=== PATIENT | female | born 1990 | race Caucasian/White ===

== ENCOUNTER 2021-01-29 00:51 | Day surgery (SDC) | payer OTHER, SELFPAY ==
[2021-01-22 11:25] VITALS: BMI 32.9
[2021-01-29 09:28] VITALS: BP 108/74; PULSE 74; RESP 18; TEMP 36.4; O2SAT 99; BMI 32.9
[2021-01-29] MEDS: LACTATED RINGERS 1,000 ML 150 ML IV CONT (09:42)
--- NOTE | 2021-01-29 10:22 | PM.HPGS ---
History of Present Illness History of Present Illness Consent: Risks, benefits, and alternatives have been discussed and questions answered. Patient agrees to proceed with procedure. Chief complaint: constipation/Abdom.pain, Nausea/vomiting Narrative: Jacquie Ndiaye is a 30 year old female with persistent right upper quadrant pain. This began about 4 weeks ago and is now constant. Along with this she has had bouts of nausea and vomiting. It was so bad of 1 point recently that she was hospitalized for that. Multiple studies have been negative including ultrasound, CT scan, and HIDA scan Review of Systems Review of Systems: All systems reviewed & are unremarkable except as noted in HPI and below PMFSH Past Medical History Medical History Constipation Endometriosis Nausea and vomiting RUQ pain Family History Family History Father Hypertension Mother Hypertension Sibling Family history of gynecological problem Social History Social History Smoking status: Never smoker Alcohol intake: current Drinks per week: 1 Living arrangements: with family Spiritual care concerns: No Meds Home Medications and Allergies Home Medications Medication Instructions Recorded Confirmed Type fluvoxamine 50 mg tablet 50 mg PO DAILY 01/17/21 01/22/21 History pantoprazole 40 mg tablet,delayed 40 mg PO QAM 01/17/21 01/22/21 History release albuterol sulfate 1 inh INHALATION DAILY PRN 01/22/21 01/22/21 History idqpoxkg-axmc-MS-calcium-mins 1 tablet PO DAILY 01/22/21 01/22/21 History [Women's One Daily] Allergies Allergy/AdvReac Type Severity Reaction Status Date / Time amoxicillin Allergy Unknown hives Verified 01/29/21 09:22 Sulfa (Sulfonamide Allergy Unknown rash Verified 01/29/21 09:22 Antibiotics) POTASSIUM CLAVULANATE Allergy Mild rash Uncoded 01/22/21 11:22 Vital Signs Vital Signs - 24 hr 01/29/21 09:28 Temperature 36.4 C L Pulse Rate 74 Respiratory Rate 18 Blood Pressure 108/74 Pulse Oximetry 99 Exam Const: General: alert Orientation/consciousness: patient oriented x3 Resp: Auscultation: clear to auscultation bilaterally Cardio: Rhythm: regular rhythm GI: GI Palp: Yes Soft to palpation and No Tenderness to palpation present (GI) Neuro: General: patient oriented x3 Assessment and Plan Assessment and plan (1) RUQ pain: Code(s): R10.11 - Right upper quadrant pain Status: Acute Assessment and Plan: EGD with possible biopsy or dilatation or cautery. (2) Change in bowel habits: Code(s): R19.4 - Change in bowel habit Status: Acute Assessment and Plan: Colonoscopy with possible biopsy or polypectomy or cautery or injection of substances.
--- NOTE | 2021-01-29 10:46 | WPDANESEPPF ---
Anes - Initial Pre Proc Eval Procedure: Operation Date: 01/29/21 10:30 Proposed Procedures p Esophagogastroduodenoscopy & Colonoscopy - Steven Mujica MD Date/Time: 01/29/21 10:46 Surgeon: Steven Mujcia MD Pre Op Diagnosis: constipation/Abdom.pain, Nausea/vomiting Patient Data Age: 30 Gender: F Height: 1.63 m Weight: 87 kg Last Vital Signs Temp 97.5 F L 01/29/21 09:28 Pulse 74 01/29/21 09:28 Resp 18 01/29/21 09:28 BP 108/74 01/29/21 09:28 Pulse Ox 99 01/29/21 09:28 Allergies Allergy/AdvReac Type Severity Reaction Status Date / Time amoxicillin Allergy Unknown hives Verified 01/29/21 09:22 Sulfa (Sulfonamide Allergy Unknown rash Verified 01/29/21 09:22 Antibiotics) POTASSIUM CLAVULANATE Allergy Mild rash Uncoded 01/22/21 11:22 Home Medications Medication Instructions Recorded Confirmed Type fluvoxamine 50 mg tablet 50 mg PO DAILY 01/17/21 01/22/21 History pantoprazole 40 mg tablet,delayed 40 mg PO QAM 01/17/21 01/22/21 History release albuterol sulfate 1 inh INHALATION DAILY PRN 01/22/21 01/22/21 History fvkqvfbx-sgnz-ID-calcium-mins 1 tablet PO DAILY 01/22/21 01/22/21 History [Women's One Daily] Patient hx anesthesia problems: none Family hx anesthesia problems: none PMFSH Past Medical History Medical History Constipation Endometriosis Nausea and vomiting RUQ pain Family History Family History Father Hypertension Mother Hypertension Sibling Family history of gynecological problem Social History Social History Smoking status: Never smoker Alcohol intake: current Drinks per week: 1 Living arrangements: with family Spiritual care concerns: No Anes - Eval Final PreProcedure Day of Procedure 01/29/21 10:46 Patient weight: obese Heart: regular rate and rhythm Lungs: clear to auscultation Airway: Mallampati scale class II Neurological: alert and oriented Last oral intake: >/= 8 hours ASA classification: III Emergent: no Anesthetic plan: proceed Anesthesia type and monitoring: general GIVS and standard monitoring Informed Consent: The patient's anesthetic plan and its attendant risks and benefits were discussed with the patient/family/POA. Questions were solicited and answers provided to the satisfaction of the patient/family/POA.
[2021-01-29] MEDS: BENZOCAINE (*SP) 60 ML SPRAY CAN (HURRICAINE) 1 SPRAY MUCOUS MEM (11:07)
[2021-01-29 11:32] VITALS: BP 80/50; PULSE 82; RESP 28; O2SAT 100
[2021-01-29 11:42] VITALS: BP 90/48; PULSE 75; RESP 27; O2SAT 100
[2021-01-29 11:52] VITALS: BP 89/53; PULSE 69; RESP 23; O2SAT 100
== END 2021-01-29 12:00 | disposition home or self-care (01) ==
PROVIDERS: PCP Family Medicine; Visit Provider Internal Medicine Gastroenterology
PROC: 0DJ08ZZ Inspection of Upper Intestinal Tract, Via Natural or Artificial Opening Endoscopic (ICD-10-PCS; CPT 43235; principal; 2021-01-29 10:30)
DX: R19.4 Change in bowel habit (principal); K21.9 Gastro-esophageal reflux disease without esophagitis; R11.2 Nausea with vomiting, unspecified; R10.11 Right upper quadrant pain; E66.9 Obesity, unspecified; Z68.32 Body mass index [BMI] 32.0-32.9, adult
CPT/HCPCS: 45378; 43239; 87081; 88305; J2704; J7120

== ENCOUNTER 2023-08-30 18:20 | Emergency (ER) | payer OTHER, SELFPAY ==
--- NOTE | ~2023-08-30 | XR_ITS ---
EXAM: XR ankle RT min 3V DATE: 08/30/2023 19:21 HISTORY: fall, injury . COMPARISON: 11/27/2007. FINDINGS: Normal mineralization. No fracture or dislocation. No lytic or blastic lesion. Joint space s are maintained. No erosion or periosteal change. Soft tissues within normal limits. IMPRESSION: No acute osseous finding in the right ankle. Reviewed, dictated and finalized at location K. [employer]
--- NOTE | 2023-08-30 22:29 | ED.LOWEXIN ---
HPI - Extremity Injury (Lower) General Chief Complaint: Extremity Injury, Lower Stated Complaint: R ANKLE INJURY Time Seen by Provider: 08/30/23 21:48 History of Present Illness HPI Narrative: 33-year-old female presents to the emergency department for evaluation for right ankle pain after stepping into a hole running in the yard earlier today. Patient is reporting pain to her lateral malleolus he that is worse with walking and movement. Denies hitting her head or losing consciousness. No other injuries acquired. Denies tenderness remainder of her extremity. Denies concern for . Related Data Home Medications Medication Instructions Recorded Confirmed fluvoxamine 50 mg tablet 50 mg PO DAILY 01/17/21 01/22/21 pantoprazole 40 mg tablet,delayed 40 mg PO QAM 01/17/21 01/22/21 release albuterol sulfate 90 mcg/actuation 1 inh inhalation DAILY PRN 01/22/21 01/22/21 aerosol inhaler Shortness Of Breath multivit-iron 18 mg-folic acid 400 1 tablet PO DAILY 01/22/21 01/22/21 mcg-calcium 500 mg-minerals tablet (Women's One Daily) Allergies Allergy/AdvReac Type Severity Reaction Status Date / Time amoxicillin Allergy Unknown hives Verified 08/30/23 21:38 Sulfa (Sulfonamide Allergy Unknown rash Verified 08/30/23 21:38 Antibiotics) POTASSIUM CLAVULANATE AdvReac Mild Rash Uncoded 08/30/23 21:38 Review of Systems Review of Systems: CONSTITUTIONAL: Denies fever, chills, or sweats. EYES: Denies visual changes, redness, or discharge. ENT: Denies rhinorrhea, congestion, sore throat, or otalgia. CARDIOVASCULAR: Denies chest pain, palpitations, or edema. RESPIRATORY: Denies cough or dyspnea. GASTROINTESTINAL: Denies abdominal pain, nausea, vomiting, or diarrhea. GENITOURINARY: Denies dysuria or hematuria. SKIN: Denies rash or itching. MUSCULOSKELETAL: See HPI NEUROLOGIC: Denies headache, numbness, or weakness. PSYCHIATRIC: Denies anxiety or depression. [facility] Past Medical History Medical History Constipation Endometriosis Nausea and vomiting RUQ pain Family History Family History Father Hypertension Mother Hypertension Sibling Family history of gynecological problem Social History Social History Smoking status: Never smoker Alcohol intake: current Drinks per week: 1 Living arrangements: with family Spiritual care concerns: No Exam Narrative: GENERAL: Well-appearing, well-nourished, and in no acute distress. HEAD: Normocephalic, atraumatic. NECK: Supple. EXTREMITIES: RLE: Tenderness and edema to the lateral malleolus with decreased range of motion of ankle secondary to pain. No tenderness to remainder of foot, medial malleolus, Achilles. No tenderness to remainder tib-fib, negative high squeeze. Negative Linder's test. Cap refill less than 2. DP pulse 2 +. Sensation intact. Compartments soft. SKIN: Warm, dry, no rash. NEURO: No focal deficits. Alert and oriented x3 MDM - Extremity Injury (Lower) MDM Narrative Medical decision making narrative: 33-year-old female reports for evaluation for right lateral lateral malleolus pain after stepping into a hole earlier today. See HPI for further history. Vitals.... Exam significant for tenderness and edema to the lateral malleolus. Negative Linder's, negative high squeeze. No tenderness remainder lower extremity. No other injuries acquired. X-ray of the ankle shows no acute osseous findings in the right ankle. Patient neurovascularly intact. Imaging discussed. She is placed in a Sony wrap, crutches, Tylenol and ibuprofen provided. Encouraged RICE, Tylenol ibuprofen for pain, early mobility, close PCP follow-up. Strict ED return precautions discussed. She is agreeable to plan verbalized understanding. Discharged in stable condition. Discharge Plan
[2023-08-30 22:35] VITALS: BP 127/86; PULSE 88; RESP 16; O2SAT 100
[2023-08-30] MEDS: ACETAMINOPHEN 500 MG TABLET 1000 MG PO (22:36)
[2023-08-30] MEDS: IBUPROFEN 400 MG TABLET 800 MG PO (22:36)
== END 2023-08-30 22:43 | disposition home or self-care (01) ==
PROVIDERS: Emergency Provider Physician Assistant; PCP Family Medicine
DX: S93.491A Sprain of other ligament of right ankle, initial encounter (principal); N80.9 Endometriosis, unspecified; X50.9XXA Other and unspecified overexertion or strenuous movements or postures, initial encounter
CPT/HCPCS: 73610; 99283; A9270